=== PATIENT | male | born 1945 | race Caucasian/White ===

== ENCOUNTER 2017-06-18 14:07 | Emergency (ER) | payer OTHER | END 2017-06-18 15:28 | disposition home or self-care (01) | LOC: FTE 14:07 | DX: N40.0 Benign prostatic hyperplasia without lower urinary tract symptoms (principal); R97.20 Elevated prostate specific antigen [PSA]; Z79.82 Long term (current) use of aspirin; Z87.891 Personal history of nicotine dependence | CPT/HCPCS: 99282; Z7502 ==